=== PATIENT | male | born 1965 | race American Indian/Alaskan Native ===

== ENCOUNTER 2018-01-16 19:20 | Emergency (ER) | payer BC ==
--- NOTE | 2018-01-16 21:09 | XRay Report ---
FINAL REPORT EXAM: XR FOOT BILAT 2V HISTORY: lesions on soles of feet TECHNIQUE: Two views of each foot Comparison: None there is pes planus on the left. FINDINGS: No fractures or dislocations. No calcifications of the soft tissue. No radiopaque foreign bodies. Minimal degenerative arthritis. There appears to be soft tissue lesion of the right 5th lateral foot projecting over the 5th metatarsal head measuring 1.2 centimeters and callus over the right 1st IP joint. IMPRESSION: 1.2 centimeter soft tissue lesion projecting over the right 5th metatarsal head. No fracture or dislocation. No lesion of the plantar aspect of the foot identified by plain film. Left pes planus.
--- NOTE | 2018-01-17 01:40 | Emergency Department Report ---
HPI - General Chief Complaint: Headache Time Seen by Provider: 01/17/18 01:21 - HPI HPI: Room 17 The patient is a 52-year-old male presenting with chief complaint of bilateral foot pain. 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 The patient states his pain improved so he never pursued surgery. Patient states over the past 3-4 years he 's noticed the pain returning and it has been worsening. Patient describes burning sharp pain that comes on suddenly and then leaves. The patient states the pain is feet have him to have a mild headache. Patient denies any other pains Location: [See above] Duration: 3-4 years Quality: Sharp Severity: Moderate Modifying factors: [see above] Context: [see above] Mode of transportation: The patient drove himself to the emergency department and there are no visitors present ED Past Medical Hx - Past Medical History Previous Medical History?: No Hx Hypertension: Yes (Not on medication) 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: BPH - Surgical History Past Surgical History?: Yes Additional Surgical History: Mouth surgery and left breast abcess surgery - Family History Family history: no significant - Social History Smoking Status: Current Every Day Smoker (2 packs per day) Substance Use Type: None (denies illicit drug use), Alcohol (2 times per week) Other Social History: Smoking cessation discussed with patient - Medications Home Medications: Home Medications Medication Instructions Recorded Confirmed Last Taken Type Ondansetron [Zofran] 4 mg PO Q6HR PRN #10 tablet 08/05/13 Unknown Rx Sulfamethoxazole/Trimethoprim 1 each PO BID #20 tablet 08/05/13 Unknown Rx [Bactrim Ds] HYDROcodone/APAP 5-325 [[place]ills 1 - 2 each PO Q6HR PRN #14 tablet 01/17/18 Unknown Rx 5/325] Ibuprofen [Motrin 800 MG tab] 800 mg PO Q8HR PRN #20 tablet 01/17/18 Unknown Rx ED Review of Systems ROS: Stated complaint: BILATERAL FOOT PAIN/HEADACHE Other details as noted in HPI Constitutional: no symptoms reported Eyes: denies: eye pain ENT: denies: throat pain Respiratory: no symptoms reported Cardiovascular: denies: chest pain Endocrine: no symptoms reported Gastrointestinal: denies: abdominal pain Genitourinary: denies: dysuria Musculoskeletal: myalgia Skin: other (calluses) Neurological: headache Physical Exam - Physical Exam Vital Signs: Vital Signs 01/16/18 23:40 Temperature 97.9 F Pulse Rate 74 Respiratory 18 Rate Blood Pressure 152/83 [Right] O2 Sat by Pulse 100 Oximetry Physical Exam: GENERAL: The patient is well-developed well-nourished male sitting on stretcher not appearing to be in acute distress. [] HEENT: Normocephalic. Atraumatic. Extraocular motions are intact. Patient has moist mucous membranes. NECK: Supple. No meningitic signs are noted. Trachea midline CHEST/LUNGS: Clear to auscultation. There is no respiratory distress noted. HEART/CARDIOVASCULAR: Regular. There is no tachycardia. There is no gallop rub or murmur. 2+ DPs bilaterally ABDOMEN: There is no abdominal distention. SKIN: There are several calluses over the soles of feet. There is no erythema/ cellulitis. No open sores.. There is no edema. There is no diaphoresis. NEURO: The patient is awake, alert, and oriented. The patient is cooperative. The patient has no focal neurologic deficits. The patient has normal speech. Cranial nerves II-12 grossly intact, no drift MUSCULOSKELETAL: There is no evidence of acute injury. ED Course Vital Signs 01/16/18 23:40 Temperature 97.9 F Pulse Rate 74 Respiratory 18 Rate Blood Pressure 152/83 [Right] O2 Sat by Pulse 100 Oximetry ED Medical Decision Making - Radiology Data Radiology results: report reviewed (bilateral foot x-ray), image reviewed ( bilateral foot x-ray) interpreted by me: Bilateral foot x-ray-no acute fracture, no foreign body [facility] [address] [place] [address] XRay Report Signed Patient: LESA AMBROSE MR#: [id number] : 1965 Acct:[id number] Age/Sex: 52 / M ADM Date: 01/16/18 Loc: ED Attending Dr: Ordering Physician: DARCY JAIMES MD Date of Service: 01/16/18 Procedure(s): XR foot BILAT 2V Accession Number(s): [id number] cc: ED MD THEODORE Fluoro Time In Minutes: FINAL REPORT EXAM: XR FOOT BILAT 2V HISTORY: lesions on soles of feet TECHNIQUE: Two views of each foot Comparison: None there is pes planus on the left. FINDINGS: No fractures or dislocations. No calcifications of the soft tissue. No radiopaque foreign bodies. Minimal degenerative arthritis. There appears to be soft tissue lesion of the right 5th lateral foot projecting over the 5th metatarsal head measuring 1.2 centimeters and callus over the right 1st IP joint. IMPRESSION: 1.2 centimeter soft tissue lesion projecting over the right 5th metatarsal head. No fracture or dislocation. No lesion of the plantar aspect of the foot identified by plain film. Left pes planus. Transcribed By: MP Dictated By: IVON TINSLEY Electronically Authenticated By: IVON TINSLEY Signed Date/Time: 01/16/182101 DD/ 01 TD/TT: 01/16/182101 - Differential Diagnosis pes planus, neuropathy Critical care attestation.: If time is entered above; I have spent that time in minutes in the direct care of this critically ill patient, excluding procedure time. ED Disposition Clinical Impression: Pes planus of left foot, Bilateral foot pain Disposition: TO HOME OR SELFCARE Is pt being admited?: No Does the pt Need Aspirin: No Condition: Stable Instructions: Arthralgia (ED) Additional Instructions: Return to the emergency department immediately should you develop worsening symptoms, fever, inability to tolerate food or liquid or any other concerns. Prescriptions: HYDROcodone/APAP 5-325 [Mills 5/325] 1 - 2 each PO Q6HR PRN #14 tablet PRN Reason: Pain Ibuprofen [Motrin 800 MG tab] 800 mg PO Q8HR PRN #20 tablet PRN Reason: Pain, Moderate (4-6) Referrals: MEGHAN SHEIKH MD [Primary Care Provider] - 3-5 Days MEGA BEAR DPM [Staff Physician] - 3-5 Days (Dr. Bear is a silk presser. Please follow up for further evaluation) Time of Disposition: 01:46
[2018-01-17 02:08] VITALS: BP 159/91
== END 2018-01-17 01:55 | disposition home or self-care (01) ==
LOC: ED 19:20
DX: M79.671 Pain in right foot (principal); M79.672 Pain in left foot; I10 Essential (primary) hypertension; F17.200 Nicotine dependence, unspecified, uncomplicated
CPT/HCPCS: 82962; 99283

== ENCOUNTER 2018-11-05 12:12 | Emergency (ER) | payer SELFPAY ==
--- NOTE | 2018-11-05 12:49 | Emergency Department Report ---
Blank Doc - Documentation Documentation: this is a 53-year-old male that presents with lower back and bilateral leg pain and cramping. Stated has been working a lot. This initial assessment/diagnostic orders/clinical plan/treatment(s) is/are subject to change based on patient's health status, clinical progression and re- assessment by fellow clinical providers in the ED. Further treatment and workup at subsequent clinical providers discretion. Patient/guardians urged not to elope from the ED as their condition may be serious if not clinically assessed and managed. Initial orders include: 1- Patient sent to [facility] for further evaluation and treatment 2- labs
[2018-11-05 12:53] VITALS: BP 148/85
[2018-11-05] MEDS ORDERED: IBUPROFEN PO ONE (14:01)
[2018-11-05 14:59] LABS: Basophils # (Auto) 0.1 K/mm3 (0.0-0.1); Eosinophils # (Auto) 0.1 K/mm3 (0.0-0.4); Eosinophils % (Auto) 2.4 % (0.0-4.3); Hematocrit 46.4 % (35.5-45.6); Hemoglobin 15.4 gm/dl (11.8-15.2); Lymphocytes # (Auto) 1.8 K/mm3 (1.2-5.4); Lymphocytes % (Auto) 28.8 % (13.4-35.0); Mean Corpuscular HGB Conc 33 % (32-34); Mean Corpuscular Volume 95 fl (84-94); Monocytes # (Auto) 0.7 K/mm3 (0.0-0.8); Monocytes % (Auto) 11.7 % (0.0-7.3); Platelet Count 171 K/mm3 (140-440); Red Blood Count 4.88 M/mm3 (3.65-5.03); Red Cell Distribution Width 13.7 % (13.2-15.2)
[2018-11-05 15:15] LABS: BUN/Creatinine Ratio 24; Blood Urea Nitrogen 22 mg/dL (9-20); Calcium 9.3 mg/dL (8.4-10.2); Hemolysis Index 20
--- NOTE | 2018-11-05 15:19 | Emergency Department Report ---
HPI - General Chief Complaint: Extremity Problem,Nontraumatic Time Seen by Provider: 11/05/18 12:48 - HPI HPI: This is a 53-year-old male presents to ED complaining of having bilateral lower leg cramps and feet pain for the past 2-3 years. Patient states her symptoms are intermittent and coming ago had a past 3 years. Patient states that he gets blisters on his foot which caused it to be painful and swollen. Patient denies any history of gout . Patient states that he's had the symptoms before and usually gets this way when he is dehydrated. Patient states he gets muscle cramps with dehydration. Patient states he does work standing on his feet a lot. He denies any recent extremities activities such as straining all working out. He denies dysuria, chest pain, fever, chills, shortness of breath, headache, blurred vision or any any other symptoms. She states that he usually get fluids when this happens and he is usually fine. ED Past Medical Hx - Past Medical History Previous Medical History?: Yes Hx Hypertension: Yes (Not on medication) 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: BPH - Surgical History Past Surgical History?: Yes Additional Surgical History: Mouth surgery and left breast abcess surgery - Social History Smoking Status: Current Every Day Smoker Substance Use Type: Alcohol - Medications Home Medications: Home Medications Medication Instructions Recorded Confirmed Last Taken Type Ondansetron [Zofran] 4 mg PO Q6HR PRN #10 tablet 08/05/13 Unknown Rx Sulfamethoxazole/Trimethoprim 1 each PO BID #20 tablet 08/05/13 Unknown Rx [Bactrim Ds] HYDROcodone/APAP 5-325 [[place] 1 - 2 each PO Q6HR PRN #14 tablet 01/17/18 Unknown Rx 5/325] Cyclobenzaprine [Flexeril] 10 mg PO QHS PRN #10 tablet 11/05/18 Unknown Rx Ibuprofen [Motrin 800 MG tab] 800 mg PO Q8HR PRN #20 tablet 11/05/18 Unknown Rx ED Review of Systems ROS: Stated complaint: FEET SWELLING/BACK CRAMPS Other details as noted in HPI Comment: All other systems reviewed and negative Physical Exam - Physical Exam Vital Signs: Vital Signs 11/05/18 12:50 Temperature 98.2 F Pulse Rate 109 H Respiratory 18 Rate Blood Pressure 148/85 O2 Sat by Pulse 98 Oximetry Physical Exam: GENERAL: Alert and oriented x3, no apparent distress, Normal Gait, atraumatic. HEAD: Head is normocephalic and a-traumatic. NECK: Supple. Non edematous, No lymphadenopathy or thyromegaly. LUNGS: Symetrical with respiration, No wheezing, no rales or crackles, CTAB. HEART: S1, S2 present, regular rate and rhythm without murmur, no rubs, no gallops. Non tender to palpation ABDOMEN: No organomegaly was noted,Positive bowel sounds, soft, and non- distended. . Nontender to palpation on all Quadrants, NO CVA tenderness. BACK: Full range of motion, no spinal tenderness, nontender to palpation. EXTREMITIES/MUSCULOSKELETAL: No cyanosis, clubbing, rash, lesions or edema. Full ROM bilaterally. Pedal Pulses 2+ bilaterally. LE 5+ strength bilaterally, 2 callus - type healed lesion on the palmar surface of the foot. No swelling, no bleeding. Nontender to palpation all joints are intact bilaterally NEUROLOGIC: The patient is cooperative with no focal neurologic deficits. SKIN: Warm and dry, No lesions, No ulceration or induration present. ED Course Vital Signs 11/05/18 12:50 Temperature 98.2 F Pulse Rate 109 H Respiratory 18 Rate Blood Pressure 148/85 O2 Sat by Pulse 98 Oximetry ED Medical Decision Making - Lab Data Result diagrams: 11/05/18 14:49 11/05/18 14:49 - Medical Decision Making 53-year-old pleasant male presents with a myalgia of the bilateral legs and callus - like lesions on his feet. CBC, CMP, urinalysis, total creatinine were elevated Urinalysis shows leuks, wbc. All labs within normal limits, total creatinine kinase elevated. Patient was given 2 L of normal saline. Discussed f/u with his pcp Patient is speaking in clear sentences. Patient states he has a sample hand. We which she really likes Dr. Bear. Patient states that he will be following up with Dr. Floyd. Discussed labs with patient. After about 1-1/2 L of normal saline patient states he feels much much better and will likely work note so he can have time to rest before he returnds to work. he is able to ambulate appropriately without any problems. Critical care attestation.: If time is entered above; I have spent that time in minutes in the direct care of this critically ill patient, excluding procedure time. ED Disposition Clinical Impression: Myalgia, Callus of foot Disposition: TO HOME OR SELFCARE Is pt being admited?: No Does the pt Need Aspirin: No Condition: Stable Instructions: Musculoskeletal Pain (ED), Arthralgia (ED) Additional Instructions: Make sure to follow up with the primary care physician as discussed. Take all your medications as you've been prescribed. If you have any worsening symptoms or develop new symptoms please return to ED immediately. Prescriptions: Cyclobenzaprine [Flexeril] 10 mg PO QHS PRN #10 tablet PRN Reason: Muscle Spasm Ibuprofen [Motrin 800 MG tab] 800 mg PO Q8HR PRN #20 tablet PRN Reason: Pain, Moderate (4-6) [facility] TAR[facility] [Primary Care Provider] - 3-5 Days MEGA BEAR DPM [Staff Physician] - 3-5 Days Forms: Work/School Release Form(ED) Time of Disposition: 18:28
[2018-11-05] MEDS ORDERED: NACL 0.9% 1000 ML 1,000 ML IV ONE (15:25)
[2018-11-05 17:48] LABS: Bilirubin,Urine NEG (Negative); Blood,Urine NEG (Negative); Color,Urine Yellow (Yellow); Mucus,Urine 2+ /HPF; Protein,Urine <15 mg/dL mg/dL (Negative)
== END 2018-11-05 19:05 | disposition home or self-care (01) ==
LOC: ED 12:12
DX: L84 Corns and callosities (principal); M79.10 Myalgia, unspecified site; I10 Essential (primary) hypertension; F17.200 Nicotine dependence, unspecified, uncomplicated; Z79.899 Other long term (current) drug therapy
CPT/HCPCS: 36415; 80048; 81001; 82550; 85025; 99283; J7030

== ENCOUNTER 2019-10-10 15:14 | Emergency (ER) | payer OTHER ==
[2019-10-10 15:27] VITALS: BP 155/78
--- NOTE | 2019-10-10 18:12 | Emergency Department Report ---
ED Back Pain/Injury HPI - General Chief Complaint: Back Pain/Injury Stated Complaint: BACK PAIN 3DAYS Time Seen by Provider: 10/10/19 17:17 Source: patient Mode of arrival: Ambulatory Limitations: No Limitations - History of Present Illness Initial Comments: This is a 54-year-old -Irish male who presents to the emergency room with low back pain for 2 days. Patient reports being seen at [place] 2 weeks ago and diagnosed with GERD. States diagnosed with pulmonary embolism last month and placed on Eliquis. States this pain is not same because it is in his lower back. Patient states this pain is similar to the pain he was feeling in his chest radiating to his back but only not in his chest at this time. He was started on Pepcid, tramadol, and a GI cocktail which is not improving symptoms. Patient states he did a lot of heavy lifting on Monday while at work but felt fine until Monday around 11:30 AM. He denies any radiating pain, chest pain, bruising, swelling, numbness or tingling, change in urinary or bowel pattern. MD Complaint: back pain Onset/Timin -: days(s) Similar Symptoms Previously: Yes Place: home Radiation: none Severity: moderate Severity scale (0 -10): 7 Quality: aching Consistency: intermittent Improves With: none Worsens With: movement Context: while lifting Associated Symptoms: denies: numbness, difficulty urinating, incontinence, fever/chills Treatments Prior to Arrival: prescription analgesics, other medications - Related Data Previous Rx's Medication Instructions Recorded Last Taken Type Apixaban [Eliquis] 5 mg PO Q12HR #60 tablet 09/06/19 Unknown Rx Fluticasone/Salmeterol [Advair 1 puff IH BID #1 disk.w.dev 09/06/19 Unknown Rx Diskus 250-50 mcg] Folic Acid [Folvite] 1 mg PO QDAY #30 tablet 09/06/19 Unknown Rx Ibuprofen [Motrin 600 MG tab] 600 mg PO Q8H PRN #14 tablet 09/06/19 Unknown Rx Prednisone [predniSONE 5 mg (6-Day 5 mg PO .TAPER #1 tab.ds.pk 09/06/19 Unknown Rx Pack, 21 Tabs)] hydroCHLOROthiazide [HCTZ] 25 mg PO QDAY #30 tablet 03/20/20 Unknown Rx levoFLOXacin [Levaquin TAB] 750 mg PO Q24HR #5 tablet 09/06/19 Unknown Rx Indomethacin [Indocin] 25 mg PO Q8H PRN #20 capsule 10/10/19 Unknown Rx Allergies Allergy/AdvReac Type Severity Reaction Status Date / Time No Known Allergies Allergy Unverified 08/05/13 14:19 ED Review of Systems ROS: Stated complaint: BACK PAIN 3DAYS Other details as noted in HPI Constitutional: denies: chills, fever Respiratory: denies: cough, shortness of breath, wheezing Cardiovascular: denies: chest pain, palpitations Gastrointestinal: denies: abdominal pain, nausea, diarrhea Genitourinary: denies: urgency, dysuria Musculoskeletal: back pain. denies: joint swelling, arthralgia Skin: denies: rash, lesions Neurological: denies: headache, weakness, paresthesias Psychiatric: denies: anxiety, depression ED Past Medical Hx - Past Medical History BPH Family history: no significant family history, other (mother a/w; father bph) ED Back Pain Physical Exam - Exam General: Vital signs noted. No distress. Alert and acting appropriately. Back/Abdomen: Yes Sacroiliac Tenderness (bilateral), No Abdominal Tenderness, No Perithoracic Tenderness, No Perilumbar Tenderness, No Flank Tenderness, No Straight Leg Raise Pain Neuro: Yes Normal Sensation, Yes Normal DTR's, Yes Normal Gait, No Motor Weakness ED Course Vital Signs 10/10/19 15:25 Temperature 98.1 F Pulse Rate 82 Respiratory 16 Rate Blood Pressure 155/78 O2 Sat by Pulse 99 Oximetry ED Medical Decision Making - Radiology Data Radiology results: report reviewed LUMBAR SPINE 3 VIEWS INDICATION / CLINICAL INFORMATION: low back pain. COMPARISON: None available. FINDINGS: VERTEBRAE: No acute fracture. No significant malalignment. DISC SPACES / FACET JOINTS:Mild degenerative disc and facet changes without significant narrowing of the intervertebral disc spaces. PARASPINAL SOFT TISSUES:No significant abnormality. ADDITIONAL FINDINGS: None. IMPRESSION: 1. Mild lumbar spondylosis. No acute abnormality. - Medical Decision Making 54-year-old male complaining of low back pain for 2 days. Patient is nontoxic appearing and stable. Vitals are normal. Obtained x-ray of L-spine with findings of Mild lumbar spondylosis. No acute abnormality. Given history, exam, and work-up, there is low suspicion for spine fracture or other acute spinal syndrome. Negative abdominal or midline spinal tenderness on exam for signs of trauma. Given analgesics while in ER. Patient instructed of symptoms being self-limiting. Start indomethacin. Continue taking Eliquis for pulmonary embolism. Apply heat or ice for comfort. Progress activity is indicated. He was given strict return precautions for delayed possible symptoms. Patient discharged with prompt follow-up with primary care physician. Critical care attestation.: If time is entered above; I have spent that time in minutes in the direct care of this critically ill patient, excluding procedure time. ED Disposition Clinical Impression: Strain of muscle, fascia and tendon of lower back, initial encounter Low back pain Qualifiers: Chronicity: acute Back pain laterality: bilateral Sciatica presence: without sciatica Qualified Code(s): M54.5 - Low back pain Disposition: TO HOME OR SELFCARE Is pt being admited?: No Condition: Stable Instructions: Muscle Strain (ED), Arthralgia (ED) Additional Instructions: Rest Use ice or heat on affected area for 20 minutes and off for 2 hours. Take pain medication as needed for pain. Follow up with Primary Care Provider in 2-3 days. Prescriptions: Indomethacin [Indocin] 25 mg PO Q8H PRN #20 capsule PRN Reason: Pain , Severe (7-10) Referrals: BECKIE POLANCO MD [Staff Physician] - 3-[address] [facility] [Outside] - 3-5 Days [facility] [Provider Group] - 3-5 Days Forms: Work/School Release Form(ED) Time of Disposition: 20:09
[2019-10-10] MEDS ORDERED: KETOROLAC 30 MG/1 ML INJ IM ONE (18:18)
--- NOTE | 2019-10-10 19:55 | XRay Report ---
LUMBAR SPINE 3 VIEWS INDICATION / CLINICAL INFORMATION: low back pain. COMPARISON: None available. FINDINGS: VERTEBRAE: No acute fracture. No significant malalignment. DISC SPACES / FACET JOINTS:Mild degenerative disc and facet changes without significant narrowing of the intervertebral disc spaces. PARASPINAL SOFT TISSUES:No significant abnormality. ADDITIONAL FINDINGS: None. IMPRESSION: 1. Mild lumbar spondylosis. No acute abnormality. Signer Name: Lonnie Bernstein MD Signed: 10/10/2019 7:51 PM Workstation Name: [id number]
== END 2019-10-10 20:20 | disposition home or self-care (01) ==
LOC: ED 15:14
DX: S39.012A Strain of muscle, fascia and tendon of lower back, initial encounter (principal); K21.9 Gastro-esophageal reflux disease without esophagitis; Z79.899 Other long term (current) drug therapy; X58.XXXA Exposure to other specified factors, initial encounter; Y93.89 Activity, other specified; Y92.89 Other specified places as the place of occurrence of the external cause; Y99.8 Other external cause status
CPT/HCPCS: 72100; 96372; 99283; J1885

== ENCOUNTER 2019-11-01 19:54 | Emergency (ER) | payer OTHER ==
[2019-11-01] MEDS ORDERED: LIDOCAINE VISCOUS 2% 15 ML ORAL LIQD PO ONE (23:22)
[2019-11-01] MEDS ORDERED: ALUM-MAG HYDROXIDE-SIMETHICONE 200-200-20MG/5ML ORAL LIQD 30 ML PO ONE (23:22)
--- NOTE | 2019-11-01 23:24 | Emergency Department Report ---
ED Abdominal Pain HPI - General Chief Complaint: Abdominal Pain Stated Complaint: CHEST PAIN, HICCUPS Time Seen by Provider: 11/01/19 23:19 Source: patient Mode of arrival: Ambulatory Limitations: No Limitations - History of Present Illness Initial Comments: Patient is a 54-year-old male that presents emergency room with complaints of epigastric pain. Patient states he was eating spicy wings and developed a burning sensation in his epigastric region radiating to his chest. Patient states is a burning sensation. Patient states he is having occasional hiccups as well. Patient states the pain is a 3 out of 10. Patient states the pain is better with rest and worse with eating. Patient states he is compliant with his blood pressure medications. MD Complaint: abdominal pain -: Sudden Location: epigastric Radiation: chest Migration to: no migration Severity: mild Severity scale (0 -10): 3 Quality: burning Consistency: constant Improves With: rest Worsens With: eating Associated Symptoms: denies other symptoms. denies: nausea, vomiting, diarrhea, fever, chills, constipation, dysuria, hematemesis, hematochezia, melena, hematuria, anorexia, syncope - Related Data Previous Rx's Medication Instructions Recorded Last Taken Type Apixaban [Eliquis] 5 mg PO Q12HR #60 tablet 09/06/19 Unknown Rx Fluticasone/Salmeterol [Advair 1 puff IH BID #1 disk.w.dev 09/06/19 Unknown Rx Diskus 250-50 mcg] Folic Acid [Folvite] 1 mg PO QDAY #30 tablet 09/06/19 Unknown Rx Ibuprofen [Motrin 600 MG tab] 600 mg PO Q8H PRN #14 tablet 09/06/19 Unknown Rx Prednisone [predniSONE 5 mg (6-Day 5 mg PO .TAPER #1 tab.ds.pk 09/06/19 Unknown Rx Pack, 21 Tabs)] hydroCHLOROthiazide [HCTZ] 25 mg PO QDAY #30 tablet 09/06/19 Unknown Rx levoFLOXacin [Levaquin TAB] 750 mg PO Q24HR #5 tablet 09/06/19 Unknown Rx Indomethacin [Indocin] 25 mg PO Q8H PRN #20 capsule 10/10/19 Unknown Rx Omeprazole 40 mg PO DAILY #30 dayne. 11/01/19 Unknown Rx Allergies Allergy/AdvReac Type Severity Reaction Status Date / Time No Known Allergies Allergy Unverified 08/05/13 14:19 ED Review of Systems ROS: Stated complaint: CHEST PAIN, HICCUPS Other details as noted in HPI Constitutional: denies: chills, fever Eyes: denies: eye pain, eye discharge, vision change ENT: denies: ear pain, throat pain Respiratory: denies: cough, shortness of breath, wheezing Cardiovascular: denies: chest pain, palpitations Endocrine: no symptoms reported Gastrointestinal: as per HPI, abdominal pain. denies: nausea, diarrhea Genitourinary: denies: urgency, dysuria Musculoskeletal: denies: back pain, joint swelling, arthralgia Skin: denies: rash, lesions Neurological: denies: headache, weakness, paresthesias Psychiatric: denies: anxiety, depression Hematological/Lymphatic: denies: easy bleeding, easy bruising ED Past Medical Hx - Past Medical History Previous Medical History?: Yes Hx Hypertension: Yes Hx Congestive Heart Failure: No Hx Diabetes: No Hx Asthma: No Hx COPD: No Hx HIV: No 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: BPH - Surgical History Past Surgical History?: Yes Additional Surgical History: Mouth surgery and left breast abcess surgery - Family History Family history: no significant - Social History Smoking Status: Former Smoker Substance Use Type: None - Medications Home Medications: Home Medications Medication Instructions Recorded Confirmed Last Taken Type Apixaban [Eliquis] 5 mg PO Q12HR #60 tablet 09/06/19 Unknown Rx Fluticasone/Salmeterol [Advair 1 puff IH BID #1 disk.w.dev 09/06/19 Unknown Rx Diskus 250-50 mcg] Folic Acid [Folvite] 1 mg PO QDAY #30 tablet 09/06/19 Unknown Rx Ibuprofen [Motrin 600 MG tab] 600 mg PO Q8H PRN #14 tablet 09/06/19 Unknown Rx Prednisone [predniSONE 5 mg (6-Day 5 mg PO .TAPER #1 tab.ds.pk 09/06/19 Unknown Rx Pack, 21 Tabs)] hydroCHLOROthiazide [HCTZ] 25 mg PO QDAY #30 tablet 09/06/19 Unknown Rx levoFLOXacin [Levaquin TAB] 750 mg PO Q24HR #5 tablet 09/06/19 Unknown Rx Indomethacin [Indocin] 25 mg PO Q8H PRN #20 capsule 10/10/19 Unknown Rx Omeprazole 40 mg PO DAILY #30 capsule. 11/01/19 Unknown Rx ED Physical Exam - General Limitations: No Limitations General appearance: alert, in no apparent distress - Head Head exam: Present: atraumatic, normocephalic - Eye Eye exam: Present: normal appearance - ENT ENT exam: Present: mucous membranes moist - Neck Neck exam: Present: normal inspection - Respiratory Respiratory exam: Present: normal lung sounds bilaterally. Absent: respiratory distress - Cardiovascular Cardiovascular Exam: Present: regular rate, normal rhythm. Absent: systolic murmur, diastolic murmur, rubs, gallop - GI/Abdominal GI/Abdominal exam: Present: soft, normal bowel sounds - Rectal Rectal exam: Present: deferred - Extremities Exam Extremities exam: Present: normal inspection - Back Exam Back exam: Present: normal inspection - Neurological Exam Neurological exam: Present: alert, oriented X3 - Psychiatric Psychiatric exam: Present: normal affect, normal mood - Skin Skin exam: Present: warm, dry, intact, normal color. Absent: rash ED Course Vital Signs 11/01/19 20:36 Temperature 98.0 F Pulse Rate 117 H Respiratory 18 Rate Blood Pressure 159/112 O2 Sat by Pulse 95 Oximetry - Reevaluation(s) Reevaluation #1: Patient will be given a GI cocktail. 11/01/19 23:22 Reevaluation #2: Patient states his symptoms have relieved. Patient states he is asymptomatic. Patient states he feels much better. Patient states ready go home. Patient's current blood pressure is 150/100 I discussed all results and clinical findings with patient. I discussed plan of care with patient. Patient agrees with plan of care. Patient is stable for discharge. Patient will be discharged home. Patient given discharge instructions. Patient voiced understanding of discharge instructions. 11/01/19 23:45 ED Medical Decision Making - Medical Decision Making Patient is a 54-year-old male that presents emergency room with epigastric pain. Patient also complained of hiccups. Patient complained of epigastric pain after eating fried chicken wings that were spicy. Patient given a GI cocktail. Patient responded well to treatment and his symptoms have resolved. His symptoms resolved prior to discharge. Patient clinical findings are consistent with gastritis and epigastric pain. Patient discharged home with a gastroenterology referral and omeprazole. Patient stable for discharge. - Differential Diagnosis Gastritis, GERD, abdominal pain Critical care attestation.: If time is entered above; I have spent that time in minutes in the direct care of this critically ill patient, excluding procedure time. ED Disposition Clinical Impression: Abdominal pain Qualifiers: Abdominal location: epigastric Qualified Code(s): R10.13 - Epigastric pain Gastritis Qualifiers: Gastritis type: unspecified gastritis Chronicity: acute Gastritis bleeding: without bleeding Qualified Code(s): K29.00 - Acute gastritis without bleeding Disposition: TO HOME OR SELFCARE Is pt being admited?: No Does the pt Need Aspirin: No Condition: Stable Instructions: Gastritis (ED), Diet for Ulcers and Gastritis (ED), Gastroesophageal Reflux Disease (ED) Additional Instructions: Patient to follow-up with primary care in 2 to 3 days. Patient to follow-up with gastroenterology in 2 to 3 days. Patient to rest. Patient to increase water. Patient to eat a reflux, gastritis diet. Patient to avoid ibuprofen. Patient to take Tylenol as needed for pain. Patient to take meds as directed. Patient to return to the ER if condition worsens, changes or new symptoms arise. Prescriptions: Omeprazole 40 mg PO DAILY #30 capsule.dr Referrals: ADORE [place] MD TARIQ [Primary Care Provider] - 2-3 Days SUNNY URRUTIA MD [Staff Physician] - 2-3 Days Time of Disposition: 23:58
[2019-11-02 01:39] VITALS: BP 149/86
== END 2019-11-01 23:47 | disposition home or self-care (01) ==
LOC: ED 19:54
DX: K29.00 Acute gastritis without bleeding (principal); I10 Essential (primary) hypertension; Z87.891 Personal history of nicotine dependence; Z98.890 Other specified postprocedural states
CPT/HCPCS: 99282

== ENCOUNTER 2020-02-06 17:46 | Emergency (ER) | payer OTHER ==
[2020-02-06 18:12] VITALS: BP 148/99
== END 2020-02-06 20:00 | disposition left against medical advice (07) ==
LOC: ED 17:46
DX: M54.89 Other dorsalgia (principal); Z53.21 Procedure and treatment not carried out due to patient leaving prior to being seen by health care provider

== ENCOUNTER 2020-11-26 15:58 | Emergency (ER) | payer OTHER ==
[2020-11-26 16:29] VITALS: BP 146/91
--- NOTE | 2020-11-26 17:52 | Emergency Department Report ---
ED General Adult HPI - General Chief complaint: Pain General Stated complaint: RT FACE PAIN Time Seen by Provider: 11/26/20 17:40 Source: patient Mode of arrival: Ambulatory Limitations: No Limitations - History of Present Illness Initial comments: Patient is a 55-year-old male presents emergency room with complaints of right- sided jaw pain that began 4 to 5 days ago. Patient states that about 5 days ago he yawned and felt like his jaw popped but then went back in place. He states since then he has had some discomfort. He still able to move the jaw. He states he feels like he has a popping sensation and has discomfort with chewing. He denies any fever, nausea, vomiting, diarrhea, facial swelling, difficulty swallowing, difficulty breathing, numbness, weakness, facial droop, difficulty speaking. Past medical history of PE and HTN and chronic back pain which he takes flexeril for. No allergies to medications - Related Data Previous Rx's Medication Instructions Recorded Last Taken Type Apixaban [Eliquis] 5 mg PO Q12HR #60 tablet 09/06/19 Unknown Rx Fluticasone/Salmeterol [Advair 1 puff IH BID #1 disk.w.dev 09/06/19 Unknown Rx Diskus 250-50 mcg] Folic Acid [Folvite] 1 mg PO QDAY #30 tablet 09/06/19 Unknown Rx Ibuprofen [Motrin 600 MG tab] 600 mg PO Q8H PRN #14 tablet 09/06/19 Unknown Rx Prednisone [predniSONE 5 mg (6-Day 5 mg PO .TAPER #1 tab.ds.pk 09/06/19 Unknown Rx Pack, 21 Tabs)] hydroCHLOROthiazide [HCTZ] 25 mg PO QDAY #30 tablet 09/06/19 Unknown Rx levoFLOXacin [Levaquin TAB] 750 mg PO Q24HR #5 tablet 09/06/19 Unknown Rx Indomethacin [Indocin] 25 mg PO Q8H PRN #20 capsule 10/10/19 Unknown Rx Omeprazole 40 mg PO DAILY #30 capsule. 11/01/19 Unknown Rx Acetaminophen [Tylenol] 650 mg PO Q8HR PRN #20 capsule 11/26/20 Unknown Rx Prednisone [predniSONE 10 mg 10 mg PO .TAPER #1 tab.ds.pk 11/26/20 Unknown Rx (6-Day Pack, 21 Tabs)] traMADoL [Ultram 50 MG tab] 50 mg PO Q6HR PRN #12 tablet 11/26/20 Unknown Rx Allergies Allergy/AdvReac Type Severity Reaction Status Date / Time No Known Allergies Allergy Unverified 08/05/13 14:19 ED Review of Systems ROS: Stated complaint: RT FACE PAIN Other details as noted in HPI Comment: All other systems reviewed and negative ED Past Medical Hx - Past Medical History Previous Medical History?: Yes Hx Hypertension: Yes Hx Congestive Heart Failure: No Hx Diabetes: No Hx Deep Vein Thrombosis: Yes (on eliquis) Hx Asthma: No Hx COPD: No Hx HIV: No 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: BPH - Surgical History Additional Surgical History: Mouth surgery and left breast abcess surgery - Social History Smoking Status: Former Smoker Substance Use Type: None - Medications Home Medications: Home Medications Medication Instructions Recorded Confirmed Last Taken Type Apixaban [Eliquis] 5 mg PO Q12HR #60 tablet 09/06/19 Unknown Rx Fluticasone/Salmeterol [Advair 1 puff IH BID #1 disk.w.dev 09/06/19 Unknown Rx Diskus 250-50 mcg] Folic Acid [Folvite] 1 mg PO QDAY #30 tablet 09/06/19 Unknown Rx Ibuprofen [Motrin 600 MG tab] 600 mg PO Q8H PRN #14 tablet 09/06/19 Unknown Rx Prednisone [predniSONE 5 mg (6-Day 5 mg PO .TAPER #1 tab.ds.pk 09/06/19 Unknown Rx Pack, 21 Tabs)] hydroCHLOROthiazide [HCTZ] 25 mg PO QDAY #30 tablet 09/06/19 Unknown Rx levoFLOXacin [Levaquin TAB] 750 mg PO Q24HR #5 tablet 09/06/19 Unknown Rx Indomethacin [Indocin] 25 mg PO Q8H PRN #20 capsule 10/10/19 Unknown Rx Omeprazole 40 mg PO DAILY #30 capsule.dr 11/01/19 Unknown Rx Acetaminophen [Tylenol] 650 mg PO Q8HR PRN #20 capsule 11/26/20 Unknown Rx Prednisone [predniSONE 10 mg 10 mg PO .TAPER #1 tab.ds.pk 11/26/20 Unknown Rx (6-Day Pack, 21 Tabs)] traMADoL [Ultram 50 MG tab] 50 mg PO Q6HR PRN #12 tablet 11/26/20 Unknown Rx ED Physical Exam - General Limitations: No Limitations General appearance: alert, in no apparent distress - Head Head exam: Present: other (ttp to the right TMJ joint, FROM of the jaw, no edema, no facial drop, able to open and close ) - Eye Eye exam: Present: normal appearance - ENT ENT exam: Present: mucous membranes moist - Respiratory Respiratory exam: Absent: respiratory distress, accessory muscle use - Neurological Exam Neurological exam: Present: alert, oriented X3 - Psychiatric Psychiatric exam: Present: normal affect, normal mood - Skin Skin exam: Present: warm, dry, intact ED Course Vital Signs 11/26/20 16:28 Temperature 98.8 F Pulse Rate 94 H Respiratory 20 Rate Blood Pressure 146/91 O2 Sat by Pulse 99 Oximetry ED Medical Decision Making - Medical Decision Making Patient is a 55-year-old male presents emergency room with complaints of right- sided jaw pain that began 4 to 5 days ago. Patient states that about 5 days ago he yawned and felt like his jaw popped but then went back in place. He states since then he has had some discomfort. He still able to move the jaw. He states he feels like he has a popping sensation and has discomfort with chewing. He denies any fever, nausea, vomiting, diarrhea, facial swelling, difficulty swallowing, difficulty breathing, numbness, weakness, facial droop, difficulty speaking. Past medical history of PE and HTN and chronic back pain which he takes flexeril for. No allergies to medication. Vitals are stable. On exam:ttp to the right TMJ joint, FROM of the jaw, no edema, no facial drop, able to open and close. Examination present most consistent with TMJ. Advised patient Please take medication as prescribed. Do not drive or operate machinery while taking severe pain medication. Follow-up with your primary care doctor. 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 Return to emergency room for new or worsening symptoms. Critical care attestation.: If time is entered above; I have spent that time in minutes in the direct care of this critically ill patient, excluding procedure time. ED Disposition Clinical Impression: Jaw pain Disposition: DC-01 TO HOME OR SELFCARE Is pt being admited?: No Does the pt Need Aspirin: No Condition: Stable Instructions: Temporomandibular Joint Syndrome Additional Instructions: Please take medication as prescribed. Do not drive or operate machinery while taking severe pain medication. Follow-up with your primary care doctor. 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 Return to emergency room for new or worsening symptoms. Prescriptions: Prednisone [predniSONE 10 mg (6-Day Pack, 21 Tabs)] 10 mg PO .TAPER #1 tab.ds.pk Acetaminophen [Tylenol] 650 mg PO Q8HR PRN #20 capsule PRN Reason: Pain, Moderate (4-6) traMADoL [Ultram 50 MG tab] 50 mg PO Q6HR PRN #12 tablet PRN Reason: Pain , Severe (7-10) Referrals: NERIS BLACK MD [Staff Physician] - 2-3 Days MELLY DAVISON MD [Referring] - 2-3 Days Time of Disposition: 17:53 Print Language: TAMAZIGHT
== END 2020-11-26 18:20 | disposition home or self-care (01) ==
LOC: ED 15:58
DX: R68.84 Jaw pain (principal); I10 Essential (primary) hypertension; Z79.899 Other long term (current) drug therapy; Z87.891 Personal history of nicotine dependence; Z98.890 Other specified postprocedural states
CPT/HCPCS: 99282

== ENCOUNTER 2020-12-18 14:33 | Emergency (ER) | payer OTHER ==
--- NOTE | 2020-12-18 18:28 | Emergency Department Report ---
ED General Adult HPI - General Chief complaint: Medical Clearance Stated complaint: JAW PAIN RIGHT SIDE Time Seen by Provider: 12/18/20 16:55 Source: patient Mode of arrival: Ambulatory Limitations: No Limitations - History of Present Illness Initial comments: 55-year-old -[place] male presents to the emergency room stating that he was here 2 weeks ago for lockjaw. Patient states now that he comes in for right side jaw soreness and soreness in his thighs hamstrings and in his groin. Patient denies any testicular pain no testicular swelling no penile discharge no dysuria. Patient states that he is currently on Eliquis. Patient reports that he was seen last month and was given a prednisone pack and he states when he started that pack he felt the best he has ever felt in a long time. Patient states that his pain went away his chest congestion went away and he overall felt better. Patient comes in asking for another prednisone pack. Patient does have a primary care provider he has history of hypertension is currently on amlodipine 10 mg. Patient's primary care provider is at [facility] and has not followed up. Patient also reports that he suffers from constipation. Patient states he tries to take [id number] magnesium citrate Maalox. Patient has not had an colonoscopy ever. Location: genitals (groin pain. ), left, right, lower extremity (thighs) Severity scale (0 -10): 8 Quality: aching Consistency: intermittent Worsens with: other (Getting up from sitting down.) Associated Symptoms: denies: cough, diaphoresis, fever/chills, headaches, loss of appetite, nausea/vomiting, shortness of breath, weakness Treatments Prior to Arrival: none - Related Data Previous Rx's Medication Instructions Recorded Last Taken Type Apixaban [Eliquis] 5 mg PO Q12HR #60 tablet 09/06/19 Unknown Rx Fluticasone/Salmeterol [Advair 1 puff IH BID #1 disk.w.dev 09/06/19 Unknown Rx Diskus 250-50 mcg] Folic Acid [Folvite] 1 mg PO QDAY #30 tablet 09/06/19 Unknown Rx Ibuprofen [Motrin 600 MG tab] 600 mg PO Q8H PRN #14 tablet 09/06/19 Unknown Rx Prednisone [predniSONE 5 mg (6-Day 5 mg PO .TAPER #1 tab.ds.pk 09/06/19 Unknown Rx Pack, 21 Tabs)] hydroCHLOROthiazide [HCTZ] 25 mg PO QDAY #30 tablet 09/06/19 Unknown Rx levoFLOXacin [Levaquin TAB] 750 mg PO Q24HR #5 tablet 09/06/19 Unknown Rx Indomethacin [Indocin] 25 mg PO Q8H PRN #20 capsule 10/10/19 Unknown Rx Omeprazole 40 mg PO DAILY #30 capsule.dr 11/01/19 Unknown Rx Acetaminophen [Tylenol] 650 mg PO Q8HR PRN #20 capsule 11/26/20 Unknown Rx Prednisone [predniSONE 10 mg 10 mg PO .TAPER #1 tab.ds.pk 11/26/20 Unknown Rx (6-Day Pack, 21 Tabs)] traMADoL [Ultram 50 MG tab] 50 mg PO Q6HR PRN #12 tablet 11/26/20 Unknown Rx Allergies Allergy/AdvReac Type Severity Reaction Status Date / Time No Known Allergies Allergy Verified 12/18/20 15:25 ED Review of Systems ROS: Stated complaint: JAW PAIN RIGHT SIDE Other details as noted in HPI Comment: All other systems reviewed and negative ED Past Medical Hx - Past Medical History Hx Hypertension: Yes Hx Congestive Heart Failure: No Hx Diabetes: No Hx Deep Vein Thrombosis: Yes (on eliquis) Hx Asthma: No Hx COPD: No Hx HIV: No 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 - Surgical History Additional Surgical History: Mouth surgery and left breast abcess surgery - Social History Smoking Status: Former Smoker Substance Use Type: None - Medications Home Medications: Home Medications Medication Instructions Recorded Confirmed Last Taken Type Apixaban [Eliquis] 5 mg PO Q12HR #60 tablet 09/06/19 Unknown Rx Fluticasone/Salmeterol [Advair 1 puff IH BID #1 disk.w.dev 09/06/19 Unknown Rx Diskus 250-50 mcg] Folic Acid [Folvite] 1 mg PO QDAY #30 tablet 09/06/19 Unknown Rx Ibuprofen [Motrin 600 MG tab] 600 mg PO Q8H PRN #14 tablet 09/06/19 Unknown Rx Prednisone [predniSONE 5 mg (6-Day 5 mg PO .TAPER #1 tab.ds.pk 09/06/19 Unknown Rx Pack, 21 Tabs)] hydroCHLOROthiazide [HCTZ] 25 mg PO QDAY #30 tablet 09/06/19 Unknown Rx levoFLOXacin [Levaquin TAB] 750 mg PO Q24HR #5 tablet 09/06/19 Unknown Rx Indomethacin [Indocin] 25 mg PO Q8H PRN #20 capsule 10/10/19 Unknown Rx Omeprazole 40 mg PO DAILY #30 capsule. 11/01/19 Unknown Rx Acetaminophen [Tylenol] 650 mg PO Q8HR PRN #20 capsule 11/26/20 Unknown Rx Prednisone [predniSONE 10 mg 10 mg PO .TAPER #1 tab.ds.pk 11/26/20 Unknown Rx (6-Day Pack, 21 Tabs)] traMADoL [Ultram 50 MG tab] 50 mg PO Q6HR PRN #12 tablet 11/26/20 Unknown Rx ED Physical Exam - General Limitations: No Limitations General appearance: alert - Head Head exam: Present: atraumatic, normocephalic - Eye Eye exam: Present: normal appearance - ENT ENT exam: Present: normal exam, other (Soreness at the TMJ) - Neck Neck exam: Present: normal inspection, full ROM - Respiratory Respiratory exam: Absent: accessory muscle use - Cardiovascular Cardiovascular Exam: Present: regular rate (Pulse rechecked by provider is 92) - GI/Abdominal GI/Abdominal exam: Absent: soft, distended, tenderness - exam: Absent: testicular tenderness, scrotal swelling - Extremities Exam Extremities exam: Present: normal inspection, tenderness (Hamstrings) - Back Exam Back exam: Present: normal inspection, full ROM - Neurological Exam Neurological exam: Present: alert, oriented X3, normal gait - Psychiatric Psychiatric exam: Present: normal affect, normal mood - Skin Skin exam: Present: warm, dry, intact, normal color. Absent: rash ED Course Vital Signs 12/18/20 15:27 Temperature 98.3 F Pulse Rate 112 H Respiratory 22 Rate Blood Pressure 155/99 [Right] O2 Sat by Pulse 99 Oximetry ED Medical Decision Making - Medical Decision Making 55-year-old -[place] male presents to the emergency room stating that he was here 2 weeks ago for lockjaw. Patient states now that he comes in for right side jaw soreness and soreness in his thighs hamstrings and in his groin. Patient denies any testicular pain no testicular swelling no penile discharge no dysuria. Patient states that he is currently on Eliquis. Patient reports that he was seen last month and was given a prednisone pack and he states when he started that pack he felt the best he has ever felt in a long time. Patient states that his pain went away his chest congestion went away and he overall felt better. Patient comes in asking for another prednisone pack. Patient does have a primary care provider he has history of hypertension is currently on amlodipine 10 mg. Patient's primary care provider is at [facility] and has not followed up. Patient also reports that he suffers from constipation. Patient states he tries to take [id number] magnesium citrate Maalox. Patient has not had an colonoscopy ever. 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 Also discussed with patient he needs to follow-up with a g astroenterologist for his constipation and needing of a colonoscopy. Patient has a green filled filter is currently on Eliquis. Discussed with patient he can take Tylenol for pain. And follow-up with his primary care provider. Critical care attestation.: If time is entered above; I have spent that time in minutes in the direct care of this critically ill patient, excluding procedure time. ED Disposition Clinical Impression: Muscle strain of left lower extremity Disposition: DC-01 TO HOME OR SELFCARE Is pt being admited?: No Does the pt Need Aspirin: No Condition: Stable Instructions: Muscle Strain, [id number] Additional Instructions: You can take Tylenol for pain management. Follow-up with your primary care provider. You can try [id number] MiraLAX for constipation. Follow-up with your primary care provider as you need to have a colonoscopy. Follow-up with your ear nose and throat provider for your lockjaw that is chronic. Referrals: [facility] [Provider Group] - 3-5 Days [facility] [Provider Group] - 3-5 Days [facility] [Provider Group] - 3-5 Days Forms: Work/School Release Form(ED)
[2020-12-18 19:12] VITALS: BP 152/100
== END 2020-12-18 19:12 | disposition home or self-care (01) ==
LOC: ED 14:33
DX: S86.912A Strain of unspecified muscle(s) and tendon(s) at lower leg level, left leg, initial encounter (principal); I10 Essential (primary) hypertension; Z98.890 Other specified postprocedural states; Z87.891 Personal history of nicotine dependence; Z79.899 Other long term (current) drug therapy; X58.XXXA Exposure to other specified factors, initial encounter; Y93.89 Activity, other specified; Y92.89 Other specified places as the place of occurrence of the external cause; Y99.8 Other external cause status
CPT/HCPCS: 99282

== ENCOUNTER 2021-07-08 15:15 | Emergency (ER) | payer OTHER ==
[2021-07-08] MEDS ORDERED: traMADol 50 MG TAB PO ONE (20:36)
[2021-07-08] MEDS ORDERED: AMOXICILLIN/K CLAV 875/125MG TAB PO ONE (20:36)
--- NOTE | 2021-07-08 20:42 | Emergency Department Report ---
ED General Adult HPI - General Chief complaint: Dental/Oral Stated complaint: JAW/TOOTH PAIN Time Seen by Provider: 07/08/21 20:35 Source: patient Mode of arrival: Ambulatory Limitations: No Limitations - History of Present Illness Initial comments: [t os a 56 u/o aam with hx of dental carries, who presents for dental pain with gum swelling, x 4 days , pt states seen by urgent care and referred to dentist, however he is unable to see dentist for 1 week. pt denies fever or chill, no n/v no throat or ear pain. Pt is tolerating po intake. - Related Data Previous Rx's Medication Instructions Recorded Last Taken Type Apixaban [Eliquis] 5 mg PO Q12HR #60 tablet 09/06/19 Unknown Rx Fluticasone/Salmeterol [Advair 1 puff IH BID #1 disk.w.dev 09/06/19 Unknown Rx Diskus 250-50 mcg] Folic Acid [Folvite] 1 mg PO QDAY #30 tablet 09/06/19 Unknown Rx Ibuprofen [Motrin 600 MG tab] 600 mg PO Q8H PRN #14 tablet 09/06/19 Unknown Rx Prednisone [predniSONE 5 mg (6-Day 5 mg PO .TAPER #1 tab.ds.pk 09/06/19 Unknown Rx Pack, 21 Tabs)] hydroCHLOROthiazide [HCTZ] 25 mg PO QDAY #30 tablet 09/06/19 Unknown Rx levoFLOXacin [Levaquin TAB] 750 mg PO Q24HR #5 tablet 09/06/19 Unknown Rx Indomethacin [Indocin] 25 mg PO Q8H PRN #20 capsule 10/10/19 Unknown Rx Omeprazole 40 mg PO DAILY #30 capsule.dr 11/01/19 Unknown Rx Acetaminophen [Tylenol] 650 mg PO Q8HR PRN #20 capsule 11/26/20 Unknown Rx Prednisone [predniSONE 10 mg 10 mg PO .TAPER #1 tab.ds.pk 11/26/20 Unknown Rx (6-Day Pack, 21 Tabs)] traMADoL [Ultram 50 MG tab] 50 mg PO Q6HR PRN #12 tablet 11/26/20 Unknown Rx Amoxicillin [Trimox CAP] 500 mg PO Q8H 7 Days #21 capsule 07/08/21 Unknown Rx Chlorhexidine Mouthwash [Peridex] 15 ml MM BID #1 bottle 07/08/21 Unknown Rx traMADoL [Ultram] 50 mg PO Q6HR PRN #12 tablet 07/08/21 Unknown Rx Allergies Allergy/AdvReac Type Severity Reaction Status Date / Time No Known Allergies Allergy Verified 12/18/20 15:25 ED Review of Systems ROS: Stated complaint: JAW/TOOTH PAIN Other details as noted in HPI Constitutional: denies: chills, fever Eyes: denies: eye pain, eye discharge, vision change ENT: dental pain. denies: ear pain, throat pain Respiratory: denies: cough, shortness of breath, wheezing Cardiovascular: denies: chest pain, palpitations Endocrine: no symptoms reported Gastrointestinal: denies: abdominal pain, nausea, diarrhea Genitourinary: denies: urgency, dysuria Musculoskeletal: denies: back pain, joint swelling, arthralgia Skin: denies: rash, lesions Neurological: as per HPI Psychiatric: denies: anxiety, depression Hematological/Lymphatic: denies: easy bleeding, easy bruising ED Past Medical Hx - Past Medical History Hx Hypertension: Yes Hx Congestive Heart Failure: No Hx Diabetes: No Hx Deep Vein Thrombosis: Yes (on eliquis) Hx Asthma: No Hx COPD: No Hx HIV: No 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 - Surgical History Additional Surgical History: Mouth surgery and left breast abcess surgery - Social History Smoking Status: Former Smoker Substance Use Type: None - Medications Home Medications: Home Medications Medication Instructions Recorded Confirmed Last Taken Type Apixaban [Eliquis] 5 mg PO Q12HR #60 tablet 09/06/19 Unknown Rx Fluticasone/Salmeterol [Advair 1 puff IH BID #1 disk.w.dev 09/06/19 Unknown Rx Diskus 250-50 mcg] Folic Acid [Folvite] 1 mg PO QDAY #30 tablet 09/06/19 Unknown Rx Ibuprofen [Motrin 600 MG tab] 600 mg PO Q8H PRN #14 tablet 09/06/19 Unknown Rx Prednisone [predniSONE 5 mg (6-Day 5 mg PO .TAPER #1 tab.ds.pk 09/06/19 Unknown Rx Pack, 21 Tabs)] hydroCHLOROthiazide [HCTZ] 25 mg PO QDAY #30 tablet 09/06/19 Unknown Rx levoFLOXacin [Levaquin TAB] 750 mg PO Q24HR #5 tablet 09/06/19 Unknown Rx Indomethacin [Indocin] 25 mg PO Q8H PRN #20 capsule 10/10/19 Unknown Rx Omeprazole 40 mg PO DAILY #30 capsule. 11/01/19 Unknown Rx Acetaminophen [Tylenol] 650 mg PO Q8HR PRN #20 capsule 11/26/20 Unknown Rx Prednisone [predniSONE 10 mg 10 mg PO .TAPER #1 tab.ds.pk 11/26/20 Unknown Rx (6-Day Pack, 21 Tabs)] traMADoL [Ultram 50 MG tab] 50 mg PO Q6HR PRN #12 tablet 11/26/20 Unknown Rx Amoxicillin [Trimox CAP] 500 mg PO Q8H 7 Days #21 capsule 07/08/21 Unknown Rx Chlorhexidine Mouthwash [Peridex] 15 ml MM BID #1 bottle 07/08/21 Unknown Rx traMADoL [Ultram] 50 mg PO Q6HR PRN #12 tablet 07/08/21 Unknown Rx ED Physical Exam - General Limitations: No Limitations General appearance: alert, in no apparent distress - Head Head exam: Present: normocephalic, normal inspection - Eye Eye exam: Present: normal appearance, PERRL, EOMI. Absent: conjunctival injection, nystagmus Pupils: Present: normal accommodation - ENT ENT exam: Present: mucous membranes moist, TM's normal bilaterally, normal external ear exam - Expanded ENT Exam Expanded Teeth exam: Present: dental caries, dental tenderness # (19). Absent: fractured tooth #, gingival enlargement Throat exam: Positive: normal inspection, other (uvula midline no exudate ). Negative: tonsillar erythema, tonsillomegaly, tonsillar exudate, R peritonsillar mass, L peritonsillar mass - Neck Neck exam: Present: normal inspection, full ROM. Absent: lymphadenopathy, thyromegaly - Respiratory Respiratory exam: Present: normal lung sounds bilaterally. Absent: respiratory distress, wheezes, stridor, chest wall tenderness - Cardiovascular Cardiovascular Exam: Present: regular rate, normal rhythm. Absent: systolic murmur, diastolic murmur, rubs, gallop - GI/Abdominal GI/Abdominal exam: Present: soft, normal bowel sounds. Absent: distended, tenderness - Rectal Rectal exam: Present: deferred - Extremities Exam Extremities exam: Present: normal inspection, full ROM. Absent: tenderness - Back Exam Back exam: Present: normal inspection, full ROM - Neurological Exam Neurological exam: Present: alert, oriented X3, CN II-XII intact - Expanded Neurological Exam Expanded Patient oriented to: Present: person, place, time Best Eye Response ([place]): (4) open spontaneously Best Motor Response ([place]): (6) obeys commands Best Verbal Response ([place]): (5) oriented [place] Total: 15 - Psychiatric Psychiatric exam: Present: normal affect, normal mood - Skin Skin exam: Present: warm, dry, intact, normal color. Absent: rash ED Course Vital Signs 07/08/21 15:25 Temperature 99.0 F Pulse Rate 95 H Respiratory 18 Rate Blood Pressure 182/107 O2 Sat by Pulse 99 Oximetry ED Medical Decision Making - Medical Decision Making Straightforward infected dental caries, to be DC'd home with prescriptions, f ollow-up with dentist in 2 to 3 days. Patient will return to emergency department should symptoms worsen or patient is tolerating p.o. intake airway is patent. There is no throat or ear pain. No fever no chills no nausea no vomiting. Critical care attestation.: If time is entered above; I have spent that time in minutes in the direct care of this critically ill patient, excluding procedure time. ED Disposition Clinical Impression: Infected dental caries Disposition: HOME / SELF CARE / HOMELESS Is pt being admited?: No Does the pt Need Aspirin: No Condition: Stable Instructions: Dental Extraction, [id number], Preventive Dental Care, Adult Additional Instructions: Follow-up with your dentist in 2 to 3 days. Take medications as prescribed. Return to emergency department should symptoms worsen. Prescriptions: Chlorhexidine Mouthwash [Peridex] 15 ml MM BID #1 bottle Amoxicillin [Trimox CAP] 500 mg PO Q8H 7 Days #21 capsule traMADoL [Ultram] 50 mg PO Q6HR PRN #12 tablet PRN Reason: Pain Referrals: [facility] [Outside] - 3-5 Days Forms: Work/School Release Form(ED) Time of Disposition: 20:47
[2021-07-08 21:15] VITALS: BP 150/80
== END 2021-07-08 21:13 | disposition home or self-care (01) ==
LOC: ED 15:15
DX: K04.7 Periapical abscess without sinus (principal); I10 Essential (primary) hypertension; I82.409 Acute embolism and thrombosis of unspecified deep veins of unspecified lower extremity; Z79.01 Long term (current) use of anticoagulants; Z98.890 Other specified postprocedural states; Z79.899 Other long term (current) drug therapy
CPT/HCPCS: 99282

== ENCOUNTER 2021-12-26 13:44 | Emergency (ER) | payer SELFPAY ==
[2021-12-26 14:40] VITALS: BP 177/94
--- NOTE | 2021-12-26 15:30 | XRay Report ---
CHEST 2 VIEWS INDICATION / CLINICAL INFORMATION: chest pain. COMPARISON: 2 views of the chest from 09/04/2019. FINDINGS: SUPPORT DEVICES: None. HEART / MEDIASTINUM: No significant abnormality. LUNGS / PLEURA: No significant pulmonary abnormality. No significant pleural effusion. No pneumothora x. ADDITIONAL FINDINGS: No significant additional findings. IMPRESSION: 1. No acute abnormality of the chest. Signer Name: Dami Lange MD Signed: 12/26/2021 3:25 PM Workstation Name: [id number]
[2021-12-26 16:17] LABS: Basophils % (Auto) 0.7 % (0.0-1.8); Eosinophils # (Auto) 0.1 K/mm3 (0.0-0.4); Eosinophils % (Auto) 1.7 % (0.0-4.3); Hematocrit 42.9 % (35.5-45.6); Lymphocytes # (Auto) 1.9 K/mm3 (1.2-5.4); Lymphocytes % (Auto) 32.8 % (13.4-35.0); Mean Corpuscular HGB Conc 33 % (32-34); Mean Corpuscular Volume 93 fl (84-94); Monocytes # (Auto) 0.6 K/mm3 (0.0-0.8); Monocytes % (Auto) 10.2 % (0.0-7.3); Platelet Count 187 K/mm3 (140-440); Red Blood Count 4.62 M/mm3 (3.65-5.03)
[2021-12-26 16:43] LABS: Alanine Aminotransferase 11 units/L (7-56); Albumin 4.6 g/dL (3.9-5); BUN/Creatinine Ratio 12; Blood Urea Nitrogen 11 mg/dL (9-20); Calcium 9.5 mg/dL (8.4-10.2); Hemolysis Index 5
--- NOTE | 2021-12-28 08:27 | Electrocardiograph Report ---
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
== END 2021-12-26 19:00 | disposition left against medical advice (07) ==
LOC: ED 13:44
DX: R52 Pain, unspecified (principal); Z53.21 Procedure and treatment not carried out due to patient leaving prior to being seen by health care provider
CPT/HCPCS: 36415; 71046; 80053; 84484; 85025; 93005

== ENCOUNTER 2021-12-28 09:28 | Emergency (ER) | payer SELFPAY ==
--- NOTE | 2021-12-28 10:05 | Emergency Department Report ---
ED General Adult HPI - General Chief complaint: Extremity Injury, Upper Stated complaint: LT SIDE PAIN Time Seen by Provider: 12/28/21 09:39 Source: patient Mode of arrival: Wheelchair Limitations: No Limitations - History of Present Illness Initial comments: Who presents with left arm pain she has some paresthesia in her left hand this is been going on for a day and hand pain is moderate nothing makes it better or worse. She denies having chest pain or shortness of breath she states that she has recently been out of her medication but she recently got a refill she is not complain of any other symptoms. - Related Data Previous Rx's Medication Instructions Recorded Last Taken Type Apixaban [Eliquis] 5 mg PO Q12HR #60 tablet 09/06/19 Unknown Rx Fluticasone/Salmeterol [Advair 1 puff IH BID #1 disk.w.dev 09/06/19 Unknown Rx Diskus 250-50 mcg] Folic Acid [Folvite] 1 mg PO QDAY #30 tablet 09/06/19 Unknown Rx Ibuprofen [Motrin 600 MG tab] 600 mg PO Q8H PRN #14 tablet 09/06/19 Unknown Rx Prednisone [predniSONE 5 mg (6-Day 5 mg PO .TAPER #1 tab.ds.pk 09/06/19 Unknown Rx Pack, 21 Tabs)] hydroCHLOROthiazide [HCTZ] 25 mg PO QDAY #30 tablet 09/06/19 Unknown Rx levoFLOXacin [Levaquin TAB] 750 mg PO Q24HR #5 tablet 09/06/19 Unknown Rx Indomethacin [Indocin] 25 mg PO Q8H PRN #20 capsule 10/10/19 Unknown Rx Omeprazole 40 mg PO DAILY #30 capsule.dr 11/01/19 Unknown Rx Acetaminophen [Tylenol] 650 mg PO Q8HR PRN #20 capsule 11/26/20 Unknown Rx Prednisone [predniSONE 10 mg 10 mg PO .TAPER #1 tab.ds.pk 11/26/20 Unknown Rx (6-Day Pack, 21 Tabs)] traMADoL [Ultram 50 MG tab] 50 mg PO Q6HR PRN #12 tablet 11/26/20 Unknown Rx Amoxicillin [Trimox CAP] 500 mg PO Q8H 7 Days #21 capsule 07/08/21 Unknown Rx Chlorhexidine Mouthwash [Peridex] 15 ml MM BID #1 bottle 07/08/21 Unknown Rx traMADoL [Ultram] 50 mg PO Q6HR PRN #12 tablet 07/08/21 Unknown Rx Allergies Allergy/AdvReac Type Severity Reaction Status Date / Time No Known Allergies Allergy Verified 12/18/20 15:25 ED Review of Systems ROS: Stated complaint: LT SIDE PAIN Other details as noted in HPI Constitutional: denies: chills, fever Eyes: denies: eye pain, eye discharge, vision change ENT: denies: ear pain, throat pain Respiratory: denies: cough, shortness of breath, wheezing Cardiovascular: denies: chest pain, palpitations Endocrine: no symptoms reported Gastrointestinal: denies: abdominal pain, nausea, diarrhea Genitourinary: denies: urgency, dysuria Musculoskeletal: as per HPI. denies: back pain, joint swelling, arthralgia Skin: denies: rash, lesions Neurological: denies: headache, weakness, paresthesias Psychiatric: denies: anxiety, depression Hematological/Lymphatic: denies: easy bleeding, easy bruising ED Past Medical Hx - Past Medical History Hx Hypertension: Yes Hx CVA: Yes (09/29/2021 no deficits) Hx Congestive Heart Failure: No Hx Diabetes: No Hx Deep Vein Thrombosis: Yes (on eliquis) Hx Asthma: No Hx COPD: No Hx HIV: No 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 - Surgical History Additional Surgical History: Mouth surgery and left breast abcess surgery - Social History Smoking Status: Never Smoker - Medications Home Medications: Home Medications Medication Instructions Recorded Confirmed Last Taken Type Apixaban [Eliquis] 5 mg PO Q12HR #60 tablet 09/06/19 Unknown Rx Fluticasone/Salmeterol [Advair 1 puff IH BID #1 disk.w.dev 09/06/19 Unknown Rx Diskus 250-50 mcg] Folic Acid [Folvite] 1 mg PO QDAY #30 tablet 09/06/19 Unknown Rx Ibuprofen [Motrin 600 MG tab] 600 mg PO Q8H PRN #14 tablet 09/06/19 Unknown Rx Prednisone [predniSONE 5 mg (6-Day 5 mg PO .TAPER #1 tab.ds.pk 09/06/19 Unknown Rx Pack, 21 Tabs)] hydroCHLOROthiazide [HCTZ] 25 mg PO QDAY #30 tablet 09/06/19 Unknown Rx levoFLOXacin [Levaquin TAB] 750 mg PO Q24HR #5 tablet 09/06/19 Unknown Rx Indomethacin [Indocin] 25 mg PO Q8H PRN #20 capsule 10/10/19 Unknown Rx Omeprazole 40 mg PO DAILY #30 capsule. 11/01/19 Unknown Rx Acetaminophen [Tylenol] 650 mg PO Q8HR PRN #20 capsule 11/26/20 Unknown Rx Prednisone [predniSONE 10 mg 10 mg PO .TAPER #1 tab.ds.pk 11/26/20 Unknown Rx (6-Day Pack, 21 Tabs)] traMADoL [Ultram 50 MG tab] 50 mg PO Q6HR PRN #12 tablet 11/26/20 Unknown Rx Amoxicillin [Trimox CAP] 500 mg PO Q8H 7 Days #21 capsule 07/08/21 Unknown Rx Chlorhexidine Mouthwash [Peridex] 15 ml MM BID #1 bottle 07/08/21 Unknown Rx traMADoL [Ultram] 50 mg PO Q6HR PRN #12 tablet 07/08/21 Unknown Rx ED Physical Exam - General Limitations: No Limitations General appearance: alert, in no apparent distress - Head Head exam: Present: atraumatic, normocephalic - Eye Eye exam: Present: normal appearance - ENT ENT exam: Present: mucous membranes moist - Neck Neck exam: Present: normal inspection - Respiratory Respiratory exam: Present: normal lung sounds bilaterally. Absent: respiratory distress - Cardiovascular Cardiovascular Exam: Present: regular rate, normal rhythm. Absent: systolic murmur, diastolic murmur, rubs, gallop - GI/Abdominal GI/Abdominal exam: Present: soft, normal bowel sounds - Rectal Rectal exam: Present: deferred - Extremities Exam Extremities exam: Present: normal inspection - Back Exam Back exam: Present: normal inspection - Neurological Exam Neurological exam: Present: alert, oriented X3 - Psychiatric Psychiatric exam: Present: normal affect, normal mood - Skin Skin exam: Present: warm, dry, intact, normal color. Absent: rash ED Course Vital Signs 12/28/21 12/28/21 10:21 10:44 Temperature 98.1 F Pulse Rate 72 Respiratory 20 Rate Blood Pressure 167/82 [Right] O2 Sat by Pulse 100 100 Oximetry ED Medical Decision Making - Lab Data Result diagrams: 12/28/21 10:32 12/28/21 10:32 Lab Results 12/28/21 12/28/21 Range/Units 10:32 10:32 WBC 5.4 (4.5-11.0) K/mm3 RBC 4.68 (3.65-5.03) M/mm3 Hgb 14.3 (11.8-15.2) gm/dl Hct 43.2 (35.5-45.6) % MCV 92 (84-94) fl MCH 31 (28-32) pg MCHC 33 (32-34) % RDW 15.1 (13.2-15.2) % Plt Count 183 (140-440) K/mm3 Lymph % (Auto) 30.4 (13.4-35.0) % [place] % (Auto) 10.7 H (0.0-7.3) % Eos % (Auto) 1.4 (0.0-4.3) % Baso % (Auto) 1.1 (0.0-1.8) % Lymph # (Auto) 1.6 (1.2-5.4) K/mm3 [place] # (Auto) 0.6 (0.0-0.8) K/mm3 Eos # (Auto) 0.1 (0.0-0.4) K/mm3 Baso # (Auto) 0.1 (0.0-0.1) K/mm3 Seg Neutrophils % 56.4 (40.0-70.0) % Seg Neutrophils # 3.1 (1.8-7.7) K/mm3 Sodium 142 (137-145) mmol/L Potassium 3.9 (3.6-5.0) mmol/L Chloride 103.5 (98-107) mmol/L Carbon Dioxide 28 (22-30) mmol/L Anion Gap 14 mmol/L BUN 10 (9-20) mg/dL Creatinine 0.8 (0.8-1.3) mg/dL Estimated GFR > 60 ml/min BUN/Creatinine Ratio 13 % Glucose 88 (75-100) mg/dL Calcium 9.7 (8.4-10.2) mg/dL Troponin T < 0.010 (0.00-0.029) ng/mL - EKG Data -: EKG Interpreted by Me - EKG Data 12/28/21 14:16 EKG time 10: 51 rate 58 sinus bradycardia left ventricular hypertrophy impression abnormal EKG. - Medical Decision Making Chief medical diagnosis: Neuropathy Differential medical diagnosis electrolyte abnormality, arrhythmia, non-STEMI I will give troponin blood work EKG Critical care attestation.: If time is entered above; I have spent that time in minutes in the direct care of this critically ill patient, excluding procedure time. ED Disposition Clinical Impression: Abnormal EKG, Left arm pain Disposition: HOME / SELF CARE / HOMELESS Is pt being admited?: No Does the pt Need Aspirin: No Condition: Stable Instructions: Pain Without a Known Cause Referrals: PRIMARY CARE, [Primary Care Provider] - 3-5 Days
--- NOTE | 2021-12-28 10:46 | XRay Report ---
CHEST 2 VIEWS INDICATION / CLINICAL INFORMATION: chest pain. COMPARISON: 12/26/2021 FINDINGS: SUPPORT DEVICES: None. HEART / MEDIASTINUM: No significant abnormality. LUNGS / PLEURA: No significant pulmonary or pleural abnormality. No pneumothorax. ADDITIONAL FINDINGS: No significant additional findings. IMPRESSION: 1. No acute findings. No change since the exam 2 days ago. Signer Name: Jacky Barrera Jr, MD Signed: 12/28/2021 10:42 AM Workstation Name: [id number]
[2021-12-28 11:18] LABS: Basophils # (Auto) 0.1 K/mm3 (0.0-0.1); Basophils % (Auto) 1.1 % (0.0-1.8); Eosinophils # (Auto) 0.1 K/mm3 (0.0-0.4); Eosinophils % (Auto) 1.4 % (0.0-4.3); Hematocrit 43.2 % (35.5-45.6); Hemoglobin 14.3 gm/dl (11.8-15.2); Lymphocytes # (Auto) 1.6 K/mm3 (1.2-5.4); Lymphocytes % (Auto) 30.4 % (13.4-35.0); Mean Corpuscular HGB Conc 33 % (32-34); Mean Corpuscular Volume 92 fl (84-94); Monocytes # (Auto) 0.6 K/mm3 (0.0-0.8); Monocytes % (Auto) 10.7 % (0.0-7.3); Platelet Count 183 K/mm3 (140-440); Red Blood Count 4.68 M/mm3 (3.65-5.03); Red Cell Distribution Width 15.1 % (13.2-15.2)
[2021-12-28 11:22] LABS: BUN/Creatinine Ratio 13; Blood Urea Nitrogen 10 mg/dL (9-20); Calcium 9.7 mg/dL (8.4-10.2); Hemolysis Index 5
[2021-12-28 14:56] VITALS: BP 152/99
--- NOTE | 2021-12-30 09:09 | Electrocardiograph Report ---
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
== END 2021-12-28 14:37 | disposition home or self-care (01) ==
LOC: ED 09:28
DX: M79.602 Pain in left arm (principal); R94.31 Abnormal electrocardiogram [ECG] [EKG]; I10 Essential (primary) hypertension; Z86.73 Personal history of transient ischemic attack (TIA), and cerebral infarction without residual deficits; I82.409 Acute embolism and thrombosis of unspecified deep veins of unspecified lower extremity; Z98.890 Other specified postprocedural states
CPT/HCPCS: 36415; 71046; 80048; 84484; 85025; 93005; 99284